=== PATIENT | male | born 1970 | race African-American/Black ===

== ENCOUNTER 2020-03-19 12:53 | Outpatient (CLI) | payer OTHER | END 2020-03-19 19:23 | disposition home or self-care (01) | LOC: LAB 12:53 | DX: Z20.828 Contact with and (suspected) exposure to other viral communicable diseases (principal) | CPT/HCPCS: 87635; G2023; U00003 ==

== ENCOUNTER 2020-10-16 10:39 | Outpatient (CLI) | payer OTHER | END 2020-10-16 20:56 | disposition home or self-care (01) | LOC: LABW 10:39 | PROVIDERS: ATTEND Family Medicine | DX: K21.9 Gastro-esophageal reflux disease without esophagitis (principal); R63.0 Anorexia; J45.909 Unspecified asthma, uncomplicated; F32.9 Major depressive disorder, single episode, unspecified; E78.5 Hyperlipidemia, unspecified; E55.9 Vitamin D deficiency, unspecified; Z79.899 Other long term (current) drug therapy ==

== ENCOUNTER 2021-06-23 01:16 | Emergency (ER) | payer OTHER ==
[~2021-06-23] VITALS: Ht 157.5 cm; Wt 43.5 kg
[2021-06-23 02:05] LABS: PLATELET COUNT 226 K/uL (142-355)
[2021-06-23 04:20] VITALS: BP 119/64; TEMP 98.6
== END 2021-06-23 04:20 | disposition home or self-care (01) ==
LOC: ED 01:16
PROVIDERS: Hospitalist
DX: R19.7 Diarrhea, unspecified (principal); R10.84 Generalized abdominal pain; Z20.822 Contact with and (suspected) exposure to COVID-19
CPT/HCPCS: 36415; 80053; 81000; 83690; 85027; 87635; 96360; 96361; 96374; 96375; 99284; J2405; Q9963; U0003

== ENCOUNTER 2021-12-24 09:05 | Outpatient (CLI) | payer OTHER ==
[2021-12-24 09:50] LABS: PLATELET COUNT 242 K/uL (142-355)
[2021-12-24 10:08] LABS: POTASSIUM 4.5 mmol/L (3.6-5.2)
== END 2021-12-24 19:57 | disposition home or self-care (01) ==
LOC: LABW 09:05
PROVIDERS: ATTEND Family Medicine
DX: R07.89 Other chest pain (principal); Z79.899 Other long term (current) drug therapy; K21.9 Gastro-esophageal reflux disease without esophagitis; F41.8 Other specified anxiety disorders; F32.9 Major depressive disorder, single episode, unspecified; E78.49 Other hyperlipidemia; K58.9 Irritable bowel syndrome, unspecified; E55.9 Vitamin D deficiency, unspecified
CPT/HCPCS: 36415; 80053; 80061; 81000; 82306; 83735; 84100; 84439; 84443; 84484; 85027; 93005

== ENCOUNTER 2022-01-05 18:53 | Emergency (ER) | payer OTHER ==
[~2022-01-05] VITALS: Ht 157.5 cm; Wt 40.4 kg
[2022-01-05 19:56] LABS: PLATELET COUNT 241 K/uL (142-355)
[2022-01-05 20:07] LABS: POTASSIUM 3.7 mmol/L (3.6-5.2)
[2022-01-05] MEDS ORDERED: PANTOPRAZOLE 40MG TA PO (23:06)
[2022-01-06 00:35] VITALS: BP 120/58; TEMP 98.5
== END 2022-01-06 00:35 | disposition home or self-care (01) ==
LOC: ED 18:53
PROVIDERS: Emergency Medicine
DX: R10.13 Epigastric pain (principal); K27.9 Peptic ulcer, site unspecified, unspecified as acute or chronic, without hemorrhage or perforation
CPT/HCPCS: 36415; 80053; 81000; 83690; 85027; 96360; 96374; 96375; 99284; J2270; J2405; J3490; Q9963

== ENCOUNTER 2023-04-11 11:59 | Outpatient (CLI) | payer OTHER ==
[~2023-04-11 11:59] MED LIST: PANTOPRAZOLE 40MG TA PO
== END 2023-04-11 19:18 | disposition home or self-care (01) ==
LOC: RAD 11:59
PROVIDERS: ATTEND Family Medicine
DX: R05.9 Cough, unspecified (principal); M54.89 Other dorsalgia